=== PATIENT | male | born 1975 | race Caucasian/White ===

== ENCOUNTER 2018-11-01 18:02 | Emergency (ER) | payer BC ==
--- NOTE | 2018-11-01 18:34 | Emergency Department Record ---
History of Present Illness - General Chief Complaint: Abdominal Pain Stated Complaint: ABD PAIN Time Seen by Provider: 11/01/18 18:28 Source: Patient Mode of Arrival: Ambulatory Limitations: No limitations - History of Present Illness Initial Comments: 43 yo male presents to ED for evaluation of diffuse abdominal bloating and pain that began 4 months ago. Patient reports trying gas-x for his symptoms without improvement. Patient denies any change in stools, nausea, vomiting, blood in the stool, or urinary symptoms. Patient denies previous abdominal surgery or health problems at his baseline. MD Complaint: Abdominal pain Onset/Timin -: Month(s) Location: Diffuse Migration to: No migration Severity: Moderate Quality: Aching Consistency: Constant Improves With: Nothing Worsens With: Nothing Associated Symptoms: Denies other symptoms - Related Data Home Medications Medication Instructions Recorded Confirmed Last Taken No Home Med [NO HOME MEDS] 11/01/18 11/01/18 Unknown Allergies Allergy/AdvReac Type Severity Reaction Status Date / Time No Known Drug Allergies Allergy Verified 11/01/18 18:48 Review of Systems Constitutional: Denies: Chills, Fever, Malaise, Night sweats Eyes: Denies: Eye discharge, Eye pain ENT: Denies: Congestion, Ear pain, Epistaxis Respiratory: Denies: Cough, Dyspnea Cardiovascular: Denies: Chest pain, Dyspnea on exertion Endocrine: Denies: Fatigue, Heat or cold intolerance Gastrointestinal: Reports: Abdominal pain. Denies: Constipation, Melena, Nausea , Vomiting Genitourinary: Denies: Incontinence, Retention Musculoskeletal: Denies: Arthralgia, Back pain Skin: Denies: Bruising, Change in color Neurological: Denies: Abnormal gait, Confusion, Headache Psychiatric: Denies: Anxiety Hematological/Lymphatic: Denies: Anemia, Blood Clots Physical Exam - General General Appearance: Alert, Oriented x3, Cooperative, No acute distress, Other ( Smiling, well appearing on examination) Limitations: No limitations - Head Head exam: Atraumatic, Normocephalic, Normal inspection Head exam detail: negative: Abrasion, Contusion, Andre's sign, General tenderness, Hematoma, Laceration - Eye Eye exam: Normal appearance. negative: Conjunctival injection, Periorbital swelling, Periorbital tenderness, Scleral icterus - ENT Ear exam: negative: Auricular hematoma, Auricular trauma Nasal Exam: negative: Active bleeding, Discharge, Dried blood, Foreign body Mouth exam: negative: Drooling, Laceration, Muffled voice, Tongue elevation - Neck Neck exam: Normal inspection. negative: Meningismus, Tenderness - Respiratory Respiratory exam: Normal lung sounds bilaterally. negative: Respiratory distress, Rhonchi, Stridor, Wheezes - Cardiovascular Cardiovascular Exam: Regular rate, Normal rhythm, Normal heart sounds - GI/Abdominal GI/Abdominal exam: Soft, Distended, Tenderness (Mild, diffuse TTP, no rebound, guarding, or peritoneal signs on examination. Mild distention noted.). negative: Rebound, Rigid - Rectal Rectal exam: Deferred - exam: Deferred - Extremities Extremities exam: Normal inspection. negative: Pedal edema, Tenderness - Back Back exam: Denies: CVA tenderness (R), CVA tenderness (L) - Neurological Neurological exam: Alert, Normal gait, Oriented X3 - Psychiatric Psychiatric exam: Normal affect, Normal mood - Skin Skin exam: Normal color. negative: Abrasion Type of lesion: negative: abrasion Course - Reevaluation(s) Reevaluation #1: 11/01/18 19:33 Initial laboratory studies were reviewed and are grossly unremarkable for an acute process. UA pending. Reevaluation #2: 11/01/18 19:47 UA was reviewed and is grossly unremarkable for an acute process. Reevaluation #3: 11/01/18 20:00 CT Abdomen and Pelvis: Findings c/w inflammation of the bladder No other acute process identified Patient was updated on all results, UA negative for infection. Labs are otherwise grossly unremarkable for an acute process. Will have the patient follow-up with Dr. Bear Sunday in the [facility] for possible cystoscopy and consultation. Patient appears stable for discharge at this time. Medical Decision Making - Lab Data Result diagrams: 11/01/18 18:25 11/01/18 18:25 Disposition Disposition: Discharge Clinical Impression: Cystitis Disposition: Home, Self-Care Condition: (2) Stable Instructions: Interstitial Cystitis (ED) Additional Instructions: Return to ED if your symptoms worsen or if you have any concerns. Follow-up with Dr. Bear in 3-5 days as directed. Referrals: ERYN BEAR M.D. [MEDICAL DOCTOR] - [facility] [Provider Group] Forms: Patient Portal Access Time of Disposition: 19:59 Quality - Quality Measures Quality Measures: N/A - Blood Pressure Screening Does Patient Have Any of the Following: No Blood Pressure Classification: Hypertensive Reading Systolic Measurement: 166 Diastolic Measurement: 113 Screening for High Blood Pressure: < First Hypertensive BP, F/U Documented > [ [id number]] First Hypertensive Follow-up Interventions: Referral to alternative/primary care provider.
[2018-11-01 19:02] LABS: BASO % 0.1 % (0-6); EOS % 1.4 % (0-6); GRAN % 60.6 % (47-80); HEMATOCRIT 45.8 % (42.0-52.0); HEMOGLOBIN 14.9 gm/dl (14.0-18.0); LYMPH % 25.7 % (16-45); MEAN CELL VOLUME 98.7 fl (81-97); MEAN CORPUSCULAR HEMOGLOBIN 32.1 pg (27-33); MEAN CORPUSCULAR HGB CONC 32.5 g/dl (32-36); MEAN PLATELET VOLUME 9.7 fl (7.4-10.4); MONO % 12.2 % (0-9); PLATELET COUNT 213 K/uL (130-400); RED BLOOD COUNT 4.64 M/uL (4.40-5.70); RED CELL DISTRIBUTION WIDTH 12.5 % (11.5-14.5)
[2018-11-01 19:14] LABS: BLOOD UREA NITROGEN 8 mg/dL (6-20)
[2018-11-01 19:15] LABS: CREATININE 0.9 mg/dL (0.7-1.2); EST GLOMERULAR FILTRATION RATE > 60 mL/min; LIPASE 39 U/L (13-60); TOTAL PROTEIN 7.9 g/dL (6.6-8.7)
[2018-11-01 19:17] LABS: GLUCOSE,RANDOM 93 mg/dL (74-109)
[2018-11-01 19:20] LABS: ALB/GLOB RATIO 1.4 (1.1-1.8); ALBUMIN 4.6 g/dL (4.0-5.0); ALKALINE PHOSPHATASE 42 U/L (40-129); ALT/SGPT 52 U/L (<41); AST/SGOT 31 U/L (10.0-50.0)
[2018-11-01 19:43] LABS: URINE APPEARANCE CLEAR; URINE BILIRUBIN NEGATIVE (NEGATIVE); URINE BLOOD NEGATIVE (NEGATIVE); URINE COLOR YELLOW; URINE GLUCOSE (UA) NEGATIVE (NEGATIVE); URINE KETONE NEGATIVE (NEGATIVE); URINE LEUKOCYTE ESTERASE NEGATIVE (NEGATIVE); URINE NITRITE NEGATIVE (NEGATIVE); URINE PROTEIN NEGATIVE (NEGATIVE); URINE UROBILINOGEN 0.2 E.U./dL (0.20 - 1.00)
--- NOTE | 2018-11-04 13:57 | CT SCAN REPORT ---
EXAM: CT OF THE ABDOMEN AND PELVIS WITH CONTRAST HISTORY: CHRONIC ABDOMINAL PAIN. TECHNIQUE: CT of the abdomen and pelvis was performed with 100 ml Omnipaque 300 intravenous contrast. Comparison: None. FINDINGS: Minor bilateral lower lobe atelectasis. Unremarkable appearance of the liver, gallbladder, adrenal glands, spleen, and pancreas. Probable small right renal cortical cyst. Symmetric renal perfusion. No hydronephrosis. The abdominal aorta has normal course and caliber. No focal colonic thickening or inflammation. Normal appendix. The small bowel is nondilated. The stomach is nondilated. No free air or free fluid. Moderate distention of the urinary bladder. The bladder wall s diffusely thickened, most prominently near the bladder bas. There is circumferential fat stranding surrounding the bladder. No acute osseous findings. IMPRESSION: 1. URINARY BLADDER DISTENTION WITH WALL THICKENING AND PERIVESICAL FAT STRANDING; APPEARANCE IS NONSPECIFIC, BUT SUSPICIOUS FOR CYSTITIS. RECOMMEND CORRELATION WITH URINALYSIS. 2. OTHERWISE NO ACUTE FINDINGS IN THE ABDOMEN OR PELVIS. JOB NUMBER: [id number] [facility]
== END 2018-11-01 20:14 | disposition home or self-care (01) ==
LOC: ER 18:02
DX: N30.90 Cystitis, unspecified without hematuria (principal); R14.0 Abdominal distension (gaseous)
CPT/HCPCS: 99283; 99284; 83690; 85025; 80053; 81003; 74177; Q9967